=== PATIENT | male | born 1995 | race Caucasian/White ===

== ENCOUNTER 2018-05-15 19:29 | Emergency (ER) | payer BC, SELFPAY ==
[2018-05-15 19:30] VITALS: BP 153/90; PULSE 84; RESP 16; TEMP 36.8; O2SAT 98; BMI 31.2
[2018-05-15 22:35] VITALS: BP 151/94; PULSE 71; RESP 18; O2SAT 100
[2018-05-15] MEDS: Ketorolac 30 MG/ML Syringe IV (22:44)
[2018-05-15] MEDS: Metoclopramide 10 MG/2 ML Vial IV (22:44)
[2018-05-15] MEDS: 0.9% Normal Saline 1,000 ML 999 ML IV (22:44)
--- NOTE | 2018-05-15 23:29 | ED.VISSUMM ---
- ER Visit Summary Date of Service: 05/15/18 Chief Complaint: Headache History of Present Illness: The patient is a 23 M who presents with a headache. It began about 5 days ago. It was gradual onset. It improved some at night. It also improves with migraine relief which is a combination medication of acetaminophen, aspirin, caffeine. He currently rates it as moderate. It was severe while in the waiting room but is already begun to improve some with the migraine only medication. His pain is bitemporal and he describes it as throbbing. He reports nausea without vomiting. He denies any history of head injury. He did have a sore throat and was seen for headache and sore throat at [facility] 4 days ago. The sore throat has since resolved. That is when he was advised to take the above medication. He does have a history of prior headaches. No numbness tingling weakness. Physical Examination: Afebrile vitals normal Patient resting comfortably no distress, sitting with lights on in the room and drinking a soda Moist mucous membranes Heart regular rate and rhythm Lungs clear Abdomen soft Alert and oriented with no focal or lateralizing neurological deficits normal strength and sensation Test Results: Not indicated Emergency Department Course and Treatment: Patient was treated with IV fluids, Toradol, Reglan, Decadron. On reevaluation symptoms are significantly improved. He does complain of feeling tired which is likely related to the Reglan. He does understand return for new or worsening symptoms. He was instructed on specific signs and symptoms to monitor for and was discharged home. Treatment Plan: [] Disposition: Discharge Impression: Headache This note was generated with [employer] dictation software. It may contain incorrect words, spelling, and punctuation that were not noted in review of the chart prior to signing ED Disposition - Plan for ED Patient: Referrals: Care Physician,No Primary [Primary Care Provider] -
--- NOTE | 2018-05-15 23:31 | ED.DEP ---
ED Disposition - Plan for ED Patient: Instructions: ED Cephalgia Unspecified Referrals: Care Physician,No Primary [Primary Care Provider] -
[2018-05-15 23:37] VITALS: BP 134/71; PULSE 71; RESP 18; O2SAT 98
== END 2018-05-15 23:38 | disposition home or self-care (01) ==
PROVIDERS: Emergency Provider Emergency Medicine
DX: R51 Headache (principal); Z72.0 Tobacco use
CPT/HCPCS: 96361; 96374; 96375; 99283; A4216

== ENCOUNTER 2018-06-28 12:07 | Emergency (ER) | payer BC, SELFPAY ==
[2018-06-28 12:08] VITALS: BP 154/86; PULSE 76; RESP 14; TEMP 36.6; O2SAT 99; BMI 32.5
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
[2018-06-28] MEDS: 0.9% Normal Saline 1,000 ML 999 ML IV (12:27)
--- NOTE | 2018-06-28 12:33 | RAD_ITS ---
STUDY: X-RAY - LEFT SHOULDER REASON FOR EXAM: Male, 23 years old. Left shoulder pain TECHNIQUE: 4 view(s) of the shoulder. COMPARISON: None. FINDINGS: Normal glenohumeral articulation. Normal acromioclavicular joint. Normal acromion. Normal humeral head and visualized proximal humerus. The soft tissue structures are unremarkable. Normal visualized pulmonary apex. RAD/Shoulder min 2 Views IMPRESSION: Normal x-ray examination of the shoulder. Electronically Signed: Prince Whipple DO at 13:23 EDT Tel , Service support ,
[2018-06-28 12:47] LABS: Absolute Lymphocyte Count 1.34 X10^3/ul (0.83-4.51); Absolute Neutrophil Count 4.6 X10^3/uL (2.0-7.7); Basophil# 0.01 X10^3/uL; Basophil% 0.2 % (0-1); Eosinophil# 0.01 X10^3/uL; Eosinophils% 0.2 % (0-5); Hemoglobin 15.7 g/dl (13.0-16.5); Lymphocyte # 1.34 X10^3/ul (4.0); Lymphocyte % 21.3 % (19-41); Mean Corp Hgb Conc 34.1 g/gl (32-36); Mean Corpuscular Volume 84.9 fL (80-94); Mean Platelet Vol. 9.4 fl (6.2-12.0); Monocyte# 0.33 X10^3/uL; Monocyte% 5.3 % (0-10); Neutrophil # 4.57 X10^3/uL (2.7-7.7); Neutrophil % 72.7 % (47-70); Platelet Count 199 K/mm3 (150-450); RBC Distribution Width CV 12.9 % (11.6-14.6); RBC Distribution Width SD 40.1 fl (35.1-43.9); Red Blood Count 5.42 M/mm3 (4.6-6.2); White Blood Count 6.3 K/mm3 (4.4-11.0)
[2018-06-28 12:48] LABS: POSITIVE COUNT NO; POSITIVE DIFFERENTIAL NO; POSITIVE MORPHOLOGY NO
[2018-06-28 12:54] LABS: Anion Gap 7 (5-15); BUN 15 mg/dL (7-18); Chloride 106 mmol/L (98-107); Creatinine, Serum 1.15 mg/dL (0.70-1.30); EST Glomerular Filtration Rate 84 mL/min (>60); Est Glom Filt Rate - Afr Amer 102 mL/min (>60); Glucose 87 mg/dL (74-106); Sodium Level 141 mmol/L (136-145)
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
[2018-06-28 13:26] VITALS: BP 155/82; PULSE 77; RESP 16; O2SAT 100
== END 2018-06-28 13:26 | disposition home or self-care (01) ==
PROVIDERS: Emergency Provider Emergency Medicine
DX: R55 Syncope and collapse (principal); S40.012A Contusion of left shoulder, initial encounter; V89.0XXA Person injured in unspecified motor-vehicle accident, nontraffic, initial encounter; Y93.89 Activity, other specified; Y92.410 Unspecified street and highway as the place of occurrence of the external cause; Z72.0 Tobacco use
CPT/HCPCS: 73030; 80048; 85025; 93005; 99285

== ENCOUNTER → 2018-07-28 07:57 | Outpatient (CLI) | payer BC, SELFPAY ==
[2018-06-28 12:08] VITALS: BMI 32.5
--- NOTE | 2018-07-28 07:58 | RAD_ITS ---
STUDY: AIR-CONTRAST UPPER GI SERIES AND SMALL BOWEL FOLLOW-THROUGH. REASON FOR EXAM: Male, 23 years old. Anorexia. FLUOROSCOPY TIME (if supplied): (0:51) minutes/seconds TECHNIQUE: The patient ingested barium. Multiple images of the esophagus, stomach and duodenum were obtained. Following this, a small bowel follow-through examination was performed. COMPARISON: None. FINDINGS: The esophagus is unremarkable. There is no evidence of esophageal obstruction. No evidence of gastroesophageal reflux. No mass lesion is seen. The stomach and duodenum are unremarkable. No evidence of ulceration. No mass lesion is present. A small bowel follow-through examination was then obtained. The transit time is normal. No evidence of intrinsic or extrinsic small bowel disease. The terminal ileum is unremarkable. RAD/Upper GI/w Small Bowel IMPRESSION: Unremarkable air contrast upper GI series and small bowel follow-through examination. Electronically Signed: Sylvain Santiago, at 15:25 EDT , Service support ,
== END ==
PROVIDERS: Family Provider Nurse Practitioner; PCP Nurse Practitioner; Referring Provider Nurse Practitioner; Visit Provider Nurse Practitioner
DX: R63.0 Anorexia (principal)
CPT/HCPCS: 74249

== ENCOUNTER → 2019-11-01 17:36 | Outpatient (CLI) | payer BC, SELFPAY | PROVIDERS: PCP Nurse Practitioner; Referring Provider Nurse Practitioner Family; Visit Provider Nurse Practitioner Family | DX: R50.9 Fever, unspecified (principal) | CPT/HCPCS: 87635; C9803; U0003 ==

== ENCOUNTER 2020-06-23 16:58 | Emergency (ER) | payer OTHER, SELFPAY ==
[2020-06-23 16:58] VITALS: BP 158/87; PULSE 84; RESP 16; TEMP 35.7; O2SAT 96; BMI 37.5
--- NOTE | 2020-06-23 17:05 | RAD_ITS ---
INDICATION: LEFT LEG INJURY EXAMINATION/TECHNIQUE: X-RAY - LEFT XR Tibia/Fibula 2 Views COMPARISON: None. FINDINGS: There is slight bowing of the proximal fibula only seen on lateral view. No blastic or lytic lesions. No degenerative changes are seen. The soft tissues are unremarkable. RAD/Tibia & Fibula 2 Views IMPRESSION: Slight bowing of the proximal fibula could represent a bowing fracture versus physiologic bowing. Recommend correlation with point tenderness. Electronically Signed: Javid Sheppard MD at 17:18 EDT Tel , Service support ,
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
[2020-06-23 23:21] VITALS: RESP 18
== END 2020-06-23 23:22 | disposition home or self-care (01) ==
PROVIDERS: Emergency Provider Emergency Medicine
DX: S80.12XA Contusion of left lower leg, initial encounter (principal); F17.200 Nicotine dependence, unspecified, uncomplicated; W50.1XXA Accidental kick by another person, initial encounter
CPT/HCPCS: 73590; 93971; 99282

== ENCOUNTER 2023-07-28 15:30 | Outpatient (RCR) | payer MEDICAID, SELFPAY ==
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
--- NOTE | 2023-07-28 15:47 | HP.PTDCSUM ---
Discharge Summary D/C summary: It has been my pleasure to treat WAYNE SERRANO referred by Dr. Baron Patel DO, with the diagnosis of spondylolysis for a total of 10 visit(s). Discharge Date: 07/28/23 Please see the following information for a summary of their discharge status. Subjective Subjective: Pt. reports overall not much better. He reports pain does fluctuate, but pain at work up to 9/10. Pt. reports averaging 6-8/10 pain throughout the day. Not much pain in his leg, currently. Pain LBP: Pain Intensity (Out of 10): 5 Overall Improvement % Improvement: 10 Objective Objective/Function: ROM: Lumbar spine: flexion mod/max loss increase NW, exte mod loss increase NW, SB min loss increase NW bilat, rotation mod loss increase NW bilat. MMT: Pt. continues to have good BLE strength, no myotomal weakness noted. gait: Pt. has a very guarded gait pattern. He has decreased B step length and decreased arm swing. Pt. reports increased pain with each step. stairs: Pt. is able to complete with step to pattern with 2 HR, but reports increased pain during R loading phases. We focused on ROM progression and lumbar strengthening in He continues to have a lot of pain at work with prolonged standing. Pt. He has not have enough relief with warrant continuing PT at this point in time. I am DCing back to physician for further imaging/work up. Goals Goal 1:: Decrease LBP x 50% to aid with sleep Goal Progress: Not Progressing Goal 2:: Increase L/S ROM flex and extension x 1 grade to aid with IADL's Goal Progress: Not Progressing Goal 3:: Decrease B LE radiculopathy x 50% to aid with work requirements Goal Progress: Not Progressing Goal 4:: I with HEP Goal Progress: Goal Met Plan Plan: Pt. to be Dc back to physician at this point in time. D/C Information d/c sentence: If there are questions or concerns regarding this patient's physical therapy, please feel free to call me at [phone]. Thank you for the referral of this patient. Sincerely, James Pacheco Sipos, DPT Balance/Gait/Functional tests Balance/Special Test Scores Oswestry Low Back Score: 21 Improvement % Improvement: 10
== END 2023-07-28 19:00 | disposition home or self-care (01) ==
LOC: PT 15:30
PROVIDERS: Referring Provider Orthopaedic Surgery; Visit Provider Orthopaedic Surgery
DX: M43.06 Spondylolysis, lumbar region (principal)
CPT/HCPCS: 97110; 97161; 97530

== ENCOUNTER → 2023-08-24 | Outpatient (CLI) | payer MEDICAID, SELFPAY ==
--- NOTE | 2023-08-24 10:29 | MRI_ITS ---
STUDY: MRI LUMBAR SPINE WITHOUT CONTRAST REASON FOR EXAM: Male, 28 years old. pain TECHNIQUE: Standardized fat and water weighted pulse sequences were obtained in the sagittal and axial planes. COMPARISON: X-ray 06/17/2023 FINDINGS: T12-L1: Normal endplates. Normal disc height, hydration and morphology. Normal bilateral facet joints. Normal central canal and bilateral lateral recesses. Normal bilateral intervertebral neural foramina. Normal lumbar lordosis. There is no substantial scoliosis. Normal conus medullaris that terminates at the L1/L2. L1-2: Normal endplates. Normal disc height, hydration and morphology. Normal bilateral facet joints. Normal central canal and bilateral lateral recesses. Normal bilateral intervertebral neural foramina. L2-3: Normal endplates. Normal disc height, hydration and morphology. Normal bilateral facet joints. Normal central canal and bilateral lateral recesses. Normal bilateral intervertebral neural foramina. L3-4: Normal endplates. Normal disc height, hydration and morphology. Normal bilateral facet joints. Normal central canal and bilateral lateral recesses. Normal bilateral intervertebral neural foramina. L4-5: Normal endplates. Normal disc height, hydration and morphology. Normal bilateral facet joints. Normal central canal and bilateral lateral recesses. Normal bilateral intervertebral neural foramina. L5-S1: Normal endplates. Normal disc height, hydration and morphology. Normal bilateral facet joints. Normal central canal and bilateral lateral recesses. Normal bilateral intervertebral neural foramina. Normal visualized sacral ala. Normal visualized paraspinous soft tissue structures. MRI/Spine Lumbar (Routine) IMPRESSION: Normal unenhanced MR examination of the lumbar spine. Electronically Signed: Bennett Ramirez MD at 16:17 EDT ,
== END | disposition home or self-care (01) ==
LOC: MRI 10:26
PROVIDERS: PCP Physician Assistant; Referring Provider Orthopaedic Surgery; Visit Provider Orthopaedic Surgery
DX: M43.06 Spondylolysis, lumbar region (principal); M51.26 Other intervertebral disc displacement, lumbar region
CPT/HCPCS: 72148

== ENCOUNTER → 2023-11-04 | Outpatient (CLI) | payer MEDICAID, SELFPAY ==
--- NOTE | 2023-11-04 09:55 | RAD_ITS ---
EXAM: XR BILATERAL HIPS WITH PELVIS WHEN PERFORMED, 4 OR MORE VIEWS CLINICAL INDICATION: HIP PAIN TECHNIQUE: Four or more views of the bilateral hips with pelvis when performed. COMPARISON: No relevant prior studies available. FINDINGS: BONES/JOINTS: Unremarkable. No displaced fracture. No destructive or sclerotic lesions. Note that overlapping bowel shadows may however obscure fine detail. Sacroiliac joint is unremarkable. No widening of the pubic symphysis. The articular structures are unremarkable. SOFT TISSUES: Unremarkable. No soft tissue swelling or gas. RAD/Hips B/L min 2 views w/ Pelvis IMPRESSION: No evidence of displaced pelvic or hip fracture. Electronically Signed: Beulah Ramirez MD at 18:48 EDT ,
== END | disposition home or self-care (01) ==
LOC: RAD 09:42
PROVIDERS: PCP Physician Assistant; Referring Provider Anesthesiology; Visit Provider Anesthesiology
DX: M25.551 Pain in right hip (principal); M25.552 Pain in left hip
CPT/HCPCS: 73521

== ENCOUNTER → 2024-01-24 | Outpatient (CLI) | payer MEDICAID, SELFPAY ==
--- NOTE | 2024-01-24 09:15 | RAD_ITS ---
STUDY: X-RAY - LEFT FOOT CLINICAL: Male, 28 years old. sprain unsure of injury, foot got real cold at work in a freezer, lateral side pain now TECHNIQUE: 3 view(s) of the foot. COMPARISON: None. FINDINGS: Normal talus, calcaneus, and tarsal bones. Normal visualized subtalar, talonavicular, calcaneocuboid, tarsal and tarsometatarsal articulations. Normal metatarsi. Normal metatarsophalangeal joint of the great toe. Normal tibial and fibular sesamoid bones. Normal interphalangeal joint of the great toe. Normal phalanges of the great toe. Normal second through fifth metatarsophalangeal joints. Normal interphalangeal joints and phalanges of the lesser toes. The soft tissue structures are unremarkable. There is no demonstrated fracture. RAD/Foot min 3 Views IMPRESSION: Normal x-ray examination of the foot. Electronically Signed: Edward Wilkinson MD at 10:29 EST ,
== END | disposition home or self-care (01) ==
LOC: MTRAD 09:15
PROVIDERS: PCP Physician Assistant; Referring Provider Physician Assistant; Visit Provider Physician Assistant
DX: T14.8XXA Other injury of unspecified body region, initial encounter (principal)
CPT/HCPCS: 73630